=== PATIENT | male | born 1960 | race Caucasian/White ===

== ENCOUNTER 2018-12-28 16:08 | Outpatient (REF) | payer MEDICAID, SELFPAY ==
[2018-12-28 22:36] LABS: ALT 16 U/L (12-78); AST 14 U/L (15-37); Albumin 3.7 g/dL (3.4-5.0); Alkaline Phosphatase 106 U/L (46-116); Anion Gap 8.2 mmol/L (3-11); BUN 5 mg/dL (7-18); Bilirubin, Total 0.4 mg/dL (0.2-1.0); CO2 29.8 mmol/L (21.0-32.0); CREATININE 0.85 mg/dL (0.70-1.30); Calcium 9.6 mg/dL (8.5-10.1); Chloride 103 mmol/L (98-107); Cholesterol 198 mg/dL (50-200); Glucose 89 mg/dL (70-100); HDL Cholesterol 33 mg/dL (40-60); LDL CHOLESTEROL 136 mg/dL (<100); Potassium 4.1 mmol/L (3.5-5.1); Sodium 141 mmol/L (136-145); Total Protein 7.2 g/dL (6.4-8.2); Triglyceride 132 mg/dL (30-150)
== END 2018-12-28 16:28 ==
LOC: NCHCN 16:08
PROVIDERS: Visit Provider Registered Nurse
DX: Z13.228 Encounter for screening for other metabolic disorders (principal); Z13.220 Encounter for screening for lipoid disorders; Z00.00 Encounter for general adult medical examination without abnormal findings
CPT/HCPCS: 80053; 80061; 83721

== ENCOUNTER 2020-04-17 09:52 | Outpatient (REF) | payer MEDICAID, SELFPAY ==
[2020-04-17 19:53] LABS: Abs Immature Grans 0.06 k/cumm (0.0-0.09); Absolute Basophil Count 0.06 k/cumm (0.0-0.2); Absolute Eosinophil Count 0.34 k/cumm (0.0-0.7); Absolute Lymphocyte Count 2.12 k/cumm (1.2-3.4); Absolute Neutrophil Count 4.02 k/cumm (1.2-6.7); Basophils % 0.8; Eosinophils % 4.7; HCT 44.3 % (40.0-50.0); HGB 15.3 g/dL (13.5-17.5); Immature Grans % 0.8 %; Lymphocytes % 29.4; Mean Corp. HGB Concentration 34.5 g/dL (32.0-36.0); Mean Corpuscular Hemoglobin 32.8 pg (27.0-33.0); Mean Corpuscular Volume 94.9 fL (80-95); Mean Platelet Volume 9.6 fL (8.0-11.0); Monocytes % 8.3; Platelet Count 333 x1000/uL (130-400); RBC 4.67 m/cumm (4.50-6.00); RBC Distribution Width 14.9 % (11.8-14.1)
[2020-04-17 20:19] LABS: Anion Gap 11.7 mmol/L (3-11); BUN 10 mg/dL (7-18); CO2 26.3 mmol/L (21.0-32.0); CREATININE 0.86 mg/dL (0.70-1.30); Calcium 9.4 mg/dL (8.5-10.1); Chloride 100 mmol/L (98-107); Glucose 85 mg/dL (74-106); Potassium 4.5 mmol/L (3.5-5.1); Sodium 138 mmol/L (136-145); TSH 2.15 uIU/mL (0.36-3.74)
[2020-04-19 09:09] LABS: HIV-1/2 Ag & Ab Screen Negative (Negative)
[2020-04-19 09:31] LABS: Hepatitis C Ab w Rflx HCV PCR Negative (Negative)
== END 2020-04-17 10:12 ==
LOC: NCHCN 09:52
PROVIDERS: Visit Provider Registered Nurse
DX: R53.83 Other fatigue (principal)
CPT/HCPCS: 80048; 86803; 87389; 84443; 85025

== ENCOUNTER 2020-05-23 10:16 | Outpatient (REF) | payer MEDICAID, SELFPAY ==
[2020-05-23 21:14] LABS: ALT 100 U/L (16-63); AST 83 U/L (15-37); Albumin 4.5 g/dL (3.4-5.0); Alkaline Phosphatase 105 U/L (46-116); Bilirubin, Direct 0.33 mg/dL (0.00-0.20); Bilirubin, Total 1.2 mg/dL (0.2-1.0)
== END 2020-05-23 10:36 ==
LOC: NCHCN 10:16
PROVIDERS: Visit Provider Registered Nurse
DX: R79.89 Other specified abnormal findings of blood chemistry (principal)
CPT/HCPCS: 80076

== ENCOUNTER 2020-09-24 15:53 | Outpatient (REF) | payer MEDICAID, SELFPAY ==
[2020-09-24 21:25] LABS: HGB 10.6 g/dL (13.5-17.5); MCH 31.5 pg (27.0-33.0); MCHC 32.1 % (32.0-36.0); MCV 98.2 fL (80-95); Platelet Count 513 10^3/uL (130-400); RBC 3.36 10^6/uL (4.36-5.78); RDW 13.5 % (11.8-14.1); RDW-SD 48.8 fL; WBC 6.97 10^3/uL (4.4-10.8)
== END 2020-09-24 16:13 ==
LOC: NCHCN 15:53
PROVIDERS: Visit Provider Nurse Practitioner Family
DX: K92.2 Gastrointestinal hemorrhage, unspecified (principal)
CPT/HCPCS: 85027

== ENCOUNTER 2020-11-13 13:40 | Outpatient (REF) | payer MEDICAID, SELFPAY ==
[2020-11-13 13:54] LABS: HCT 40.5 % (40.0-50.0); HGB 13.3 g/dL (13.5-17.5); MCH 30.2 pg (27.0-33.0); MCHC 32.8 % (32.0-36.0); MPV 9.3 fL (8.0-11.0); Platelet Count 338 10^3/uL (130-400); RDW 14.1 % (11.8-14.1); WBC 10.01 10^3/uL (4.4-10.8)
== END 2020-11-13 13:41 | disposition home or self-care (01) ==
LOC: NCHCN 13:40
PROVIDERS: PCP Registered Nurse; Visit Provider Registered Nurse
DX: D50.0 Iron deficiency anemia secondary to blood loss (chronic) (principal)
CPT/HCPCS: 85027

== ENCOUNTER 2022-11-20 12:47 | Outpatient (REF) | payer MEDICAID, SELFPAY ==
[2022-11-20 21:00] LABS: HCT 40.4 % (40.0-50.0); MCH 30.7 pg (27.0-33.0); MCHC 32.2 % (32.0-36.0); MCV 96 fL (80-95); MPV 10.3 fL (8.0-11.0); Platelet Count 313 10^3/uL (130-400); RBC 4.23 10^6/uL (4.36-5.78); RDW 14.7 % (11.8-14.1); RDW-SD 51.9 fL; WBC 7.69 10^3/uL (4.4-10.8)
[2022-11-20 21:30] LABS: ALT 23 U/L (16-63); AST 25 U/L (15-37); Albumin 3.5 g/dL (3.4-5.0); Alkaline Phosphatase 102 U/L (46-116); BUN 6 mg/dL (7-18); Bilirubin, Total 0.5 mg/dL (0.2-1.0); CREATININE 0.8 mg/dL (0.70-1.30); Calcium 9.3 mg/dL (8.5-10.1); Calculated LDL 67 mg/dL (<100); Chloride 106 mmol/L (98-107); Cholesterol 139 mg/dL (<200); Estimated GFR 101.95 (mL/min/1.73m2); Folate 8.8 ng/mL (8.6-20.0); Glucose 86 mg/dL (74-106); HDL Cholesterol 62 mg/dL (40-60); Potassium 4.5 mmol/L (3.5-5.1); Sodium 142 mmol/L (136-145); Total Protein 7.1 g/dL (6.4-8.2); Triglyceride 51 mg/dL (<150); Vitamin B12 338 pg/mL (193-986)
== END 2022-11-20 12:48 | disposition home or self-care (01) ==
LOC: NCHCN 12:47
PROVIDERS: PCP Registered Nurse; Visit Provider Registered Nurse
DX: D50.0 Iron deficiency anemia secondary to blood loss (chronic) (principal); K70.0 Alcoholic fatty liver; R79.89 Other specified abnormal findings of blood chemistry; Z86.39 Personal history of other endocrine, nutritional and metabolic disease
CPT/HCPCS: 80053; 80061; 85027; 82607; 82746